=== PATIENT | female | born 1975 | race Caucasian/White ===

== ENCOUNTER 2023-01-09 05:52 | Day surgery (SDC) | payer OTHER ==
[2023-01-09] MEDS ORDERED: Nozin Nasal Sanitizer NASBOTH ONE (06:00)
[2023-01-09 06:35] LABS: HEMATOCRIT 37.3 % (34.3-46.0); HEMOGLOBIN 12.4 g/dL (11.2-15.5); MEAN CORPUSCULAR HGB CONC 33.2 g/dL (31.6-35.5); MEAN CORPUSCULAR VOLUME 90.1 fL (81.4-99.0); RED BLOOD CELL COUNT 4.14 M/uL (3.77-5.24); WHITE BLOOD CELL COUNT,WBC 6.8 K/uL (3.2-11.0)
[2023-01-09 06:56] LABS: A/G RATIO 1.1 (1.2-2.2); ALANINE AMINOTRANSFERASE,ALT 11 U/L (12-78); ALBUMIN 3.4 g/dL (3.4-5.0); ALKALINE PHOSPHATASE 45 U/L (46-116); ANION GAP 10.6 mmol/L (5.0-14.0); ASPARTATE AMNIOTRANSFERASE,AST 15 U/L (15-37); BILIRUBIN TOTAL 0.4 mg/dL (0.2-1.0); BLOOD UREA NITROGEN,BUN 19 mg/dL (7-18); CALCIUM 8.5 mg/dL (8.5-10.1); CARBON DIOXIDE,CO2 24 mmol/L (21-32); CHLORIDE,CL 105 mmol/L (100-108); CREATININE 0.7 mg/dL (0.6-1.0); EST CRCL DRUG DOSING (CG) 86.72 mL/min; ESTIMATED GFR 108 mL/min (>60); GLUCOSE RANDOM 101 mg/dL (74-106); POTASSIUM,K 3.8 mmol/L (3.6-5.2); PROTEIN TOTAL,TP 6.4 g/dL (6.4-8.2); SODIUM,NA 140 mmol/L (140-148)
[2023-01-09] MEDS ORDERED: Lactated Ringers 1,000 ML IV SCH (07:00)
[2023-01-09] MEDS ORDERED: Midazolam 1 MG/ML 2 ML SDV ONE (07:28)
[2023-01-09] MEDS ORDERED: Propofol 200 MG/20 ML SDV ONE ×2 (07:28→08:28)
[2023-01-09] MEDS ORDERED: fentaNYL 100 MCG/2 ML SDV ONE ×2 (07:28→08:53)
[2023-01-09] MEDS ORDERED: Bupivacaine 0.5% 30 ML SDV ONE (07:30)
[2023-01-09] MEDS ORDERED: ceFAZolin 1 GM in Premix Bag 1 BAG IV ONE (07:31)
[2023-01-09] MEDS ORDERED: Ketorolac 30 MG/ML SDV IM ONE (09:01)
[2023-01-09] MEDS ORDERED: Ondansetron 4 MG/2 ML SDV IVPUSH ONE (10:17)
== END 2023-01-09 11:25 | disposition home or self-care (01) ==
LOC: JP.SDS 05:52
PROVIDERS: ATTEND Specialist
DX: M75.41 Impingement syndrome of right shoulder (principal); M25.811 Other specified joint disorders, right shoulder; M75.101 Unspecified rotator cuff tear or rupture of right shoulder, not specified as traumatic; E66.9 Obesity, unspecified; Z68.34 Body mass index [BMI] 34.0-34.9, adult
CPT/HCPCS: 29822; 36415; 80053; 84703; 85027; A9270-GY; J0690; J1885; J2250; J2405; J2704; J3010; J3490; J7120